=== PATIENT | female | born 1940 | race Two or more races ===

== ENCOUNTER 2019-04-30 17:59 | Emergency (ER) | payer OTHER ==
[~2019-04-30] VITALS: Ht 152.4 cm; Wt 66.2 kg
[2019-04-30] MEDS ORDERED: HYDROCODONE/APAP 5-325MG TABLET ONE (18:44)
[2019-04-30] MEDS ORDERED: HYDROCODONE/APAP 5-325MG TABLET PO ONE (18:45)
--- NOTE | 2019-04-30 18:55 | NUR ---
Patient discharged to home in stable conditon. Written and verbal after care instructions given. Patient verbalizes understanding of instructions.
[2019-04-30 18:57] VITALS: BP 138/70
== END 2019-04-30 18:58 | disposition home or self-care (01) ==
LOC: ER 18:03
DX: S62.646A Nondisplaced fracture of proximal phalanx of right little finger, initial encounter for closed fracture (principal); X58.XXXA Exposure to other specified factors, initial encounter; Y93.89 Activity, other specified; Y92.89 Other specified places as the place of occurrence of the external cause; Y99.8 Other external cause status
CPT/HCPCS: 73130; A4663